=== PATIENT | male | born 1960 | race Hispanic/Latino ===

== ENCOUNTER 2017-09-17 06:12 | Inpatient (IN) | payer OTHER ==
[2017-09-17 06:29] VITALS: BMI 41.8
--- NOTE | 2017-09-17 07:25 | ED PDOC ---
Lower Extremity Pain/Injury Time Seen by Provider: 09/17/17 07:06 Chief Complaint (Nursing): Lower Extremity Problem/Injury Chief Complaint (Provider): Lower Extremity Problem/Injury History Per: Patient History/Exam Limitations: no limitations Onset/Duration Of Symptoms: Days (x 2 months) Current Symptoms Are (Timing): Still Present Additional Complaint(s): Zan is a 57 year old male who presents to the emergency department complaining of right knee pain for 2 months. Denies recent trauma, paresthesias, weakness. PMD: [place] Past Medical History Reviewed: Historical Data, Nursing Documentation, Vital Signs Vital Signs: Last Vital Signs Temp 98.4 F 09/17/17 06:30 Pulse 81 09/17/17 06:30 Resp 18 09/17/17 06:30 BP 158/93 H 09/17/17 06:30 Pulse Ox 96 09/17/17 06:30 - Medical History PMH: GERD Denies: Chronic Kidney Disease - Family History Family History: States: Unknown Family Hx - Social History Current smoker - smoking cessation education provided: No Alcohol: Social Drugs: Denies - Home Medications Home Medications: Ambulatory Orders Medication Instructions Recorded Pantoprazole Sodium [Protonix] 40 mg PO DAILY 09/17/17 oxyCODONE/Acetaminophen [Percocet 1 ea PO Q4H PRN #30 tab 09/17/17 5/325 mg Tab] - Allergies Allergies/Adverse Reactions: Allergies Allergy/AdvReac Type Severity Reaction Status Date / Time Penicillins Allergy RASH Verified 09/17/17 07:53 Review of Systems ROS Statement: Except As Marked, All Systems Reviewed And Found Negative Musculoskeletal: Positive for: Other (Right knee pain) Physical Exam - Reviewed Nursing Documentation Reviewed: Yes Vital Signs Reviewed: Yes - Physical Exam Appears: Positive for: Non-toxic Respiratory: Positive for: Normal Breath Sounds. Negative for: Respiratory Distress Extremity: Positive for: Tenderness (Anterior right knee) Neurologic/Psych: Positive for: Alert, Oriented (x 3) - Laboratory Results Result Diagrams: 09/17/17 07:25 09/17/17 07:25 - ECG O2 Sat by Pulse Oximetry: 96 (RA) Pulse Ox Interpretation: Normal Medical Decision Making Medical Decision Making: Time: 07:19 Plan: - Type and Screen - EKG - CMP - ED Urine [place] - CBC - Partial Thromboplastin - Prothrombin Time - Portable Chest X-Ray - Urinalysis Time: 07:23 Patient is to be admitted as an inpatient for intractable knee pain. Time: 10:45 Portable Chest X-Ray FINDINGS: LUNGS: No active pulmonary disease. PLEURA: No significant pleural effusion identified, no pneumothorax apparent. CARDIOVASCULAR: No radiographic findings to suggest acute or significant cardiovascular disease. OSSEOUS STRUCTURES: No significant abnormalities. VISUALIZED UPPER ABDOMEN: Normal. OTHER FINDINGS: None. IMPRESSION: No active disease. Scribe Attestation: Documented by Tristan Calderon, acting as a scribe for Monica Pastrana MD Provider Scribe Attestation: All medical record entries made by the Scribe were at my direction and personally dictated by me. I have reviewed the chart and agree that the record accurately reflects my personal performance of the history, physical exam, medical decision making, and the department course for this patient. I have also personally directed, reviewed, and agree with the discharge instructions and disposition. Disposition - Clinical Impression Clinical Impression: Intractable pain - Patient ED Disposition Is Patient to be Admitted: Yes - Disposition Disposition Time: 07:23 Condition: STABLE - Pt Status Changed To: Hospital Disposition Of: Inpatient - Admit Certification Admit to Inpatient:: After my assessment, the patient will require hospitalization for at least two midnights. This is because of the severity of symptoms shown, intensity of services needed, and/or the medical risk in this patient being treated as an outpatient. - POA Present On Arrival: None
[2017-09-17] MEDS ORDERED: Lidocaine 4% (Laryng-O-Jet) Kit MM ONE (07:50)
[2017-09-17] MEDS ORDERED: Succinylcholine 200 mg/10 ml Inj IV ONE (07:50)
[2017-09-17] MEDS ORDERED: Lidocaine 1% 5ml Abboject IV ONE (07:50)
[2017-09-17] MEDS ORDERED: Propofol 10 mg/ml Inj (20 ML) ONE (07:50)
[2017-09-17] MEDS ORDERED: Midazolam 2 MG/2 ML VIAL ONE (07:50)
[2017-09-17] MEDS ORDERED: Rocuronium 10 mg/ml (5 ml) ONE (07:51)
[2017-09-17 07:52] LABS: BASO # 0.1 K/uL (0.0-0.2); EOS # 0.2 K/uL (0.0-0.7); EOS % 2.8 % (0.0-4.0); HEMOGLOBIN 14.8 g/dL (12.0-18.0); LYMPH # 2.7 K/uL (1.0-4.3); LYMPH % 31.4 % (20.0-40.0); MEAN CELL VOLUME 83.8 fl (80.0-94.0); MEAN CORPUSCULAR HEMOGLOBIN 27.2 pg (27.0-31.0); MEAN CORPUSCULAR HGB CONC 32.5 g/dL (33.0-37.0); MEAN PLATELET VOLUME 9.2 fl (7.2-11.7); MONO # 0.8 K/uL (0.0-0.8); MONO % 9.2 % (0.0-10.0); NEUT # 4.8 K/uL (1.8-7.0); NEUT % 55.6 % (50.0-75.0); NRBC % 0.1 % (0.0-0.0); RBC 5.43 Mil/uL (4.40-5.90); RED CELL DISTRIBUTION WIDTH 15.5 % (11.5-14.5); WHITE BLOOD COUNT 8.7 K/uL (4.8-10.8)
[2017-09-17] MEDS ORDERED: Sevoflurane - Inhalation Anesthetic Liq (250 ml) ONE (07:53)
[2017-09-17] MEDS ORDERED: EPINEPHrine 1 mg/ml (1:1000) Inj ONE (07:56)
[2017-09-17] MEDS ORDERED: Bupivacaine 0.5% Inj(30mL) ONE (07:56)
[2017-09-17] MEDS ORDERED: methylPREDNISolone Depo 80 mg/ml Inj ONE (07:56)
[2017-09-17] MEDS ORDERED: Bacitracin Ointment 30 GM TUBE ONE (07:57)
--- NOTE | 2017-09-17 07:57 | CP.PCM.PN ---
Subjective - Date & Time of Evaluation Date of Evaluation: 09/17/17 Time of Evaluation: 07:54 - Subjective Subjective: 57 year old male patient with PMHx of GERD was seen and evaluated at bedside in ED complaining of right knee pain. Patient reports that he was seen by his Orthopedic doctor (Dr. Wolfe) prior to his visit to the ED today. Patient states that he had x-rays of the right knee but denies of having any other prior treatment. Patient reports that he has scheduled right knee surgery with Dr. Wolfe this morning. 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 Patient also denies of having these symptoms during rest. Patient denies of having any recent F/N/V/C/headache/diarrhea/urinary frequency/ urinary urgency or burning while urinating. Patient denies of having any other complains at this time. PMHx: GERD PSHx: Left knee surgery (meniscus repair), Hernia repair, Endoscopy (last month) Allergies: Penicillins SHx: Denies of smoking, EtOH or illicit drug usage, lives home with his FHx: DM, HTN (Mother) Medication: Protonix Objective - Vital Signs/Intake and Output Vital Signs (last 24 hours): Temp Pulse Resp BP Pulse Ox 98.4 F 81 18 158/93 H 96 09/17/17 06:30 09/17/17 06:30 09/17/17 06:30 09/17/17 06:30 09/17/17 07:52
[2017-09-17] MEDS ORDERED: Neostigmine Methylsulfate 2 MG/2 ML ML IV ONE (08:00)
[2017-09-17 08:01] LABS: URINE BILIRUBIN NEGATIVE (NEGATIVE); URINE BLOOD NEGATIVE (NEGATIVE); URINE CLARITY CLEAR (Clear); URINE COLOR YELLOW (YELLOW); URINE GLUCOSE (UA) NEG (Normal); URINE HYALINE CAST 0-2 /hpf (0-2); URINE LEUKOCYTE ESTERASE NEG Leu/uL (Negative); URINE NITRATE NEGATIVE (NEGATIVE); URINE PROTEIN NEGATIVE (NEGATIVE); URINE UROBILINOGEN 0.2-1.0 mg/dL (0.2-1.0)
[2017-09-17 08:03] LABS: ALB/GLOB RATIO 1.2 (1.0-2.1); ALT/SGPT 34 U/L (21-72); AST/SGOT 26 U/L (17-59); BLOOD UREA NITROGEN 19 mg/dl (9-20); CALCIUM 9.2 mg/dL (8.4-10.2); GFR AFRICAN-AMERICAN > 60; GFR NON-AFRICAN AMERICAN > 60
--- NOTE | 2017-09-17 08:07 | CP.SDSHP ---
Same Day Surgery H & P - History Proposed Procedure: Right knee arthroscopy Pre-Op Diagnosis: Intractable right knee pain - Allergies Allergies: Allergies Penicillins Allergy (Verified 09/17/17 07:53) RASH - Current Medications Current Medications: Home Medication List Medication Instructions Recorded Confirmed Type oxyCODONE/Acetaminophen [Percocet 1 ea PO Q4H PRN #30 tab 09/17/17 Rx 5/325 mg Tab] - Physical Exam Vital Signs: Vital Signs 09/17/17 09/17/17 09/17/17 06:30 07:52 07:55 Temperature 98.4 F 98.4 F Pulse Rate 81 81 Respiratory 18 18 Rate Blood Pressure 158/93 H 158/93 H O2 Sat by Pulse 96 96 Oximetry Mental Status: Alert & Oriented x3 Heart: WNL Lungs: WNL GI: WNL - {Optional Preform as Required} Ortho: Other (+ROM ankle/toes, sensation intaCT) Other Pertinent Findings: [place] [employer] DEVELOPER patient report reviewed, no CDS. Patient counseled on the risks of addiction, physical or psychological dependence, and overdose associated with opioid drugs and the danger of taking opioid drugs with alcohol and other central nervous system depressants, and cautioned patient on storage and disposal. - Impression Impression: 57M with intractable right knee pain for arthroscopy. labs reviewed Pt. Evaluated Today:Candidate for Anesthesia & Procedure: Yes - Date & Time Date: 09/17/17 Time: 08:07 Short Stay Discharge - Short Stay Discharge Admitting Diagnosis/Reason for Visit: INTRACTABLE KNEE PAIN Disposition: HOME/ ROUTINE Medications: oxyCODONE/Acetaminophen [Percocet 5/325 mg Tab] 1 ea PO Q4H PRN #30 tab PRN Reason: Pain, Moderate (4-7) Past Patient History - Past Medical History & Family History Past Medical History?: Yes - Past Social History Alcohol: Social Drugs: Denies - CARDIAC Hx Cardiac Disorders: No - PULMONARY Hx Respiratory Disorders: No - NEUROLOGICAL Hx Neurological Disorder: No - HEENT Hx HEENT Problems: No - RENAL Hx Chronic Kidney Disease: No - ENDOCRINE/METABOLIC Hx Endocrine Disorders: No - HEMATOLOGICAL/ONCOLOGICAL Hx Blood Disorders: No - INTEGUMENTARY Hx Dermatological Problems: No - MUSCULOSKELETAL/RHEUMATOLOGICAL Other/Comment: Knee pain - GASTROINTESTINAL Hx Gastroesophageal Reflux: Yes - PSYCHIATRIC Hx Psychophysiologic Disorder: No Hx Emotional Abuse: No Hx Physical Abuse: No Hx Substance Use: No
--- NOTE | 2017-09-17 08:09 | CP.PCM.HP ---
History of Present Illness - History of Present Illness History of Present Illness: 57 year old male patient with PMHx of GERD was seen and evaluated at bedside in ED complaining of right knee pain. Patient states that the pain has been present for about 2 months now. Patient denies of having any recent trauma or injury to the right knee. Patient reports that he was seen by his Orthopedic doctor (Dr. Wolfe) prior to his visit to the ED today. Patient states that he had x-rays of the right knee but denies of having any other prior treatment. Patient reports that he has scheduled right knee surgery with Dr. Wolfe this morning. 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 Patient also denies of having these symptoms during rest. Patient denies of having any recent F/N/V/C/headache/diarrhea/urinary frequency/urinary urgency or burning while urinating. Patient denies of having any other complains at this time. PMHx: GERD PSHx: Left knee surgery (meniscus repair), Hernia repair, Endoscopy (last month) Allergies: Penicillins SHx: Denies of smoking, EtOH or illicit drug usage, lives home with his FHx: DM, HTN (Mother) Medication: Protonix Present on Admission - Present on Admission Any Indicators Present on Admission: No Review of Systems - Constitutional Constitutional: As Per HPI - EENT Eyes: As Per HPI - Cardiovascular Cardiovascular: As Per HPI - Respiratory Respiratory: As Per HPI - Gastrointestinal Gastrointestinal: As Per HPI - Musculoskeletal Musculoskeletal: Limited Range of Motion, Stiffness - Integumentary Integumentary: As Per HPI - Neurological Neurological: As Per HPI - Psychiatric Psychiatric: As Per HPI - Endocrine Endocrine: As Per HPI Past Patient History - Past Medical History & Family History Past Medical History?: Yes - Past Social History Alcohol: Social Drugs: Denies - CARDIAC Hx Cardiac Disorders: No - PULMONARY Hx Respiratory Disorders: No - NEUROLOGICAL Hx Neurological Disorder: No - HEENT Hx HEENT Problems: No - RENAL Hx Chronic Kidney Disease: No - ENDOCRINE/METABOLIC Hx Endocrine Disorders: No - HEMATOLOGICAL/ONCOLOGICAL Hx Blood Disorders: No - INTEGUMENTARY Hx Dermatological Problems: No - MUSCULOSKELETAL/RHEUMATOLOGICAL Other/Comment: Knee pain - GASTROINTESTINAL Hx Gastroesophageal Reflux: Yes - PSYCHIATRIC Hx Psychophysiologic Disorder: No Hx Emotional Abuse: No Hx Physical Abuse: No Hx Substance Use: No Meds Home Medications: Home Medication List Medication Instructions Recorded Confirmed Type oxyCODONE/Acetaminophen [Percocet 1 ea PO Q4H PRN #30 tab 09/17/17 Rx 5/325 mg Tab] Allergies/Adverse Reactions: Allergies Allergy/AdvReac Type Severity Reaction Status Date / Time Penicillins Allergy RASH Verified 09/17/17 07:53 Physical Exam - Constitutional Appears: Well, Non-toxic, No Acute Distress - Head Exam Head Exam: ATRAUMATIC - Eye Exam Eye Exam: Normal appearance - ENT Exam ENT Exam: Normal Exam - Neck Exam Neck exam: Positive for: Full Rom, Normal Inspection - Respiratory Exam Respiratory Exam: Clear to Auscultation Bilateral, NORMAL BREATHING PATTERN. absent: Rales, Rhonchi, Wheezes, Respiratory Distress - Cardiovascular Exam Cardiovascular Exam: REGULAR RHYTHM, +S1, +S2. absent: Bradycardia, Tachycardia , Systolic Murmur - GI/Abdominal Exam GI & Abdominal Exam: Normal Bowel Sounds, Soft. absent: Mass, Organomegaly, Rigid - Rectal Exam Rectal Exam: Deferred - Extremities Exam Extremities exam: Positive for: normal capillary refill, normal inspection, tenderness, pedal pulses present. Negative for: calf tenderness - Neurological Exam Neurological exam: Alert, Oriented x3 - Psychiatric Exam Psychiatric exam: Normal Affect, Normal Mood - Skin Skin Exam: Intact, Normal Color, Warm Results - Vital Signs Recent Vital Signs: Last Vital Signs Temp 98.4 F 09/17/17 07:55 Pulse 81 09/17/17 07:55 Resp 18 09/17/17 07:55 BP 158/93 H 09/17/17 07:55 Pulse Ox 96 09/17/17 07:52 - Labs Result Diagrams: 09/17/17 07:25 09/17/17 07:25 Labs: Laboratory Results - last 24 hr 09/17/17 09/17/17 09/17/17 07:25 07:25 07:25 WBC 8.7 RBC 5.43 Hgb 14.8 Hct 45.5 MCV 83.8 MCH 27.2 MCHC 32.5 L RDW 15.5 H Plt Count 157 MPV 9.2 Neut % (Auto) 55.6 Lymph % (Auto) 31.4 [place] % (Auto) 9.2 Eos % (Auto) 2.8 Baso % (Auto) 1.0 Neut # 4.8 Lymph # 2.7 [place] # 0.8 Eos # 0.2 Baso # 0.1 Sodium 143 Potassium 4.3 Chloride 109 H Carbon Dioxide 22 Anion Gap 16 BUN 19 Creatinine 0.9 Est GFR ( Amer) > 60 Est GFR (Non-Af Amer) > 60 Random Glucose 110 Calcium 9.2 Total Bilirubin 0.7 AST 26 ALT 34 Alkaline Phosphatase 64 Total Protein 7.4 Albumin 4.0 Globulin 3.4 Albumin/Globulin Ratio 1.2 Urine Color Urine Clarity Urine pH Ur Specific [place] Urine Protein Urine Glucose (UA) Urine Ketones Urine Blood Urine Nitrate Urine Bilirubin Urine Urobilinogen Ur Leukocyte Esterase Urine RBC (Auto) Urine Microscopic WBC Hyaline Casts BBK History Checked No verified bt 09/17/17 07:25 WBC RBC Hgb Hct MCV MCH MCHC RDW Plt Count MPV Neut % (Auto) Lymph % (Auto) [place] % (Auto) Eos % (Auto) Baso % (Auto) Neut # Lymph # [place] # Eos # Baso # Sodium Potassium Chloride Carbon Dioxide Anion Gap BUN Creatinine Est GFR ( Amer) Est GFR (Non-Af Amer) Random Glucose Calcium Total Bilirubin AST ALT Alkaline Phosphatase Total Protein Albumin Globulin Albumin/Globulin Ratio Urine Color Yellow Urine Clarity Clear Urine pH 5.0 Ur Specific [place] 1.023 Urine Protein Negative Urine Glucose (UA) Neg Urine Ketones Negative Urine Blood Negative Urine Nitrate Negative Urine Bilirubin Negative Urine Urobilinogen 0.2-1.0 Ur Leukocyte Esterase Neg Urine RBC (Auto) 3 Urine Microscopic WBC < 1 Hyaline Casts 0-2 BBK History Checked Assessment & Plan - Assessment and Plan (Free Text) Assessment: 57 year old male patient with PMHx of GERD was evaluated for right knee pain. Plan: 1). Right knee pain - Orthopedic Consult (Dr. Wolfe) - Patient to go to OR today for right knee arthroscopy - Pre-op work-up - Labs, EKG, CXR - Reviewed - NPO status confirmed (since 8 PM yesterday) - Denies of having any adverse reaction to anesthesia from previous surgery - Cardiology Consult (Dr. Armendariz) - Recommendations appreciated - Patient is low risk for surgery - may progress to right knee surgery 2). GERD - Continue Home meds - Chronic 3). DVT PPx - Ambulating - Hold meds for now since going to surgery - Date & Time Date: 09/17/17 Time: 08:09
[2017-09-17 08:15] LABS: INR 1.1 (0.9-1.2); PARTIAL THROMBOPLASTIN TIME 33.6 Seconds (25.6-37.1); PROTHROMBIN TIME 12.4 Seconds (9.8-13.1)
--- NOTE | 2017-09-17 08:33 | CP.PCM.CON ---
History of Present Illness - History of Present Illness History of Present Illness: THE PATIENT IS A 57 YEAR OLD MALE ADMITTED VIA THE ER FOR A RIGHT MENISCUS PROBLEM FOR SURGERY BY DR CANO. CARDIOLOGY WAS CALLED TO SEE HIM BECAUSE OF AN ABNORMAL EKG. HE DENIES ANY KNOWN MEDICAL PROBLEMS EXCEPT FOR GERDS FOR WHICH HE TAKES PROTONIX. HE DENIES CAD, TYPICAL CHEST PAIN, HYPERTENSION OR DM. HE DENIES ANY SPECIFIC TRAUMA TO THE RIGHT KNEE. HE HAD LEFT KNEE SURGERY IN THE PAST Past Patient History - Past Medical History & Family History Past Medical History?: Yes - Past Social History Alcohol: Social Drugs: Denies - CARDIAC Hx Cardiac Disorders: No - PULMONARY Hx Respiratory Disorders: No - NEUROLOGICAL Hx Neurological Disorder: No - HEENT Hx HEENT Problems: No - RENAL Hx Chronic Kidney Disease: No - ENDOCRINE/METABOLIC Hx Endocrine Disorders: No - HEMATOLOGICAL/ONCOLOGICAL Hx Blood Disorders: No - INTEGUMENTARY Hx Dermatological Problems: No - MUSCULOSKELETAL/RHEUMATOLOGICAL Other/Comment: Knee pain - GASTROINTESTINAL Hx Gastroesophageal Reflux: Yes - PSYCHIATRIC Hx Psychophysiologic Disorder: No Hx Emotional Abuse: No Hx Physical Abuse: No Hx Substance Use: No Meds Home Medications: Home Medication List Medication Instructions Recorded Confirmed Type oxyCODONE/Acetaminophen [Percocet 1 ea PO Q4H PRN #30 tab 09/17/17 Rx 5/325 mg Tab] Allergies/Adverse Reactions: Allergies Allergy/AdvReac Type Severity Reaction Status Date / Time Penicillins Allergy RASH Verified 09/17/17 07:53 Physical Exam - Respiratory Exam Respiratory Exam: Clear to Auscultation Bilateral - Cardiovascular Exam Cardiovascular Exam: REGULAR RHYTHM, +S1, +S2 - Extremities Exam Additional comments: MILD BILATERAL TENDERNESS - Additional Findings Additional findings: EKG NSR-THE EKG WAS READ A POSSIBLE INFERIOR WALL IL BY THE MACHINE BUT A CLOSE INSPECTION OF THE EKG SHOWS SMALL R BLIPS IN THE INFERIOR LEADS Results - Vital Signs Recent Vital Signs: Last Vital Signs Temp 98.4 F 09/17/17 07:55 Pulse 81 09/17/17 07:55 Resp 18 09/17/17 07:55 BP 158/93 H 09/17/17 07:55 Pulse Ox 96 09/17/17 07:52 - Labs Result Diagrams: 09/17/17 07:25 09/17/17 07:25 Labs: Laboratory Results - last 24 hr 09/17/17 09/17/17 09/17/17 07:25 07:25 07:25 WBC 8.7 RBC 5.43 Hgb 14.8 Hct 45.5 MCV 83.8 MCH 27.2 MCHC 32.5 L RDW 15.5 H Plt Count 157 MPV 9.2 Neut % (Auto) 55.6 Lymph % (Auto) 31.4 [place] % (Auto) 9.2 Eos % (Auto) 2.8 Baso % (Auto) 1.0 Neut # 4.8 Lymph # 2.7 [place] # 0.8 Eos # 0.2 Baso # 0.1 PT 12.4 INR 1.1 APTT 33.6 Sodium 143 Potassium 4.3 Chloride 109 H Carbon Dioxide 22 Anion Gap 16 BUN 19 Creatinine 0.9 Est GFR ( Amer) > 60 Est GFR (Non-Af Amer) > 60 Random Glucose 110 Calcium 9.2 Total Bilirubin 0.7 AST 26 ALT 34 Alkaline Phosphatase 64 Total Protein 7.4 Albumin 4.0 Globulin 3.4 Albumin/Globulin Ratio 1.2 Urine Color Urine Clarity Urine pH Ur Specific [place] Urine Protein Urine Glucose (UA) Urine Ketones Urine Blood Urine Nitrate Urine Bilirubin Urine Urobilinogen Ur Leukocyte Esterase Urine RBC (Auto) Urine Microscopic WBC Hyaline Casts BBK History Checked 09/17/17 09/17/17 07:25 07:25 WBC RBC Hgb Hct MCV MCH MCHC RDW Plt Count MPV Neut % (Auto) Lymph % (Auto) [place] % (Auto) Eos % (Auto) Baso % (Auto) Neut # Lymph # [place] # Eos # Baso # PT INR APTT Sodium Potassium Chloride Carbon Dioxide Anion Gap BUN Creatinine Est GFR ( Amer) Est GFR (Non-Af Amer) Random Glucose Calcium Total Bilirubin AST ALT Alkaline Phosphatase Total Protein Albumin Globulin Albumin/Globulin Ratio Urine Color Yellow Urine Clarity Clear Urine pH 5.0 Ur Specific [place] 1.023 Urine Protein Negative Urine Glucose (UA) Neg Urine Ketones Negative Urine Blood Negative Urine Nitrate Negative Urine Bilirubin Negative Urine Urobilinogen 0.2-1.0 Ur Leukocyte Esterase Neg Urine RBC (Auto) 3 Urine Microscopic WBC < 1 Hyaline Casts 0-2 BBK History Checked No verified bt Assessment & Plan - Assessment and Plan (Free Text) Assessment: RIGHT MENISCUS DISEASE Plan: THE PATIENT IS CLEARED FOR SURGERY
--- NOTE | 2017-09-17 10:18 | CARD ---
APPROVED REPORT EKG Measurement Heart [id number] <Conclusion> Normal sinus rhythm Possible Left atrial enlargement Inferior infarct, age undetermined Abnormal ECG
--- NOTE | 2017-09-17 10:47 | RAD ---
HISTORY: Medical clearance. COMPARISON: No prior. FINDINGS: LUNGS: No active pulmonary disease. PLEURA: No significant pleural effusion identified, no pneumothorax apparent. CARDIOVASCULAR: No radiographic findings to suggest acute or significant cardiovascular disease. OSSEOUS STRUCTURES: No significant abnormalities. VISUALIZED UPPER ABDOMEN: Normal. OTHER FINDINGS: None. IMPRESSION: No active disease.
[2017-09-17] MEDS ORDERED: Lidocaine 1% Inj (20ml) ONE (10:50)
[2017-09-17] MEDS ORDERED: Lactated Ringer's 1,000 ML IV ONE ×2 (11:30→14:25)
[2017-09-17] MEDS ORDERED: Lidocaine 1% Inj (20ml) IJ ONE (12:30)
[2017-09-17] MEDS ORDERED: Morphine 1 mg/ml preservative-free Inj(Duramorph) ONE (13:03)
[2017-09-17] MEDS ORDERED: methylPREDNISolone Depo 80 mg/ml Inj IM ONE (13:04)
[2017-09-17] MEDS ORDERED: Bupivacaine 0.5% 50 ML IJ ONE (13:04)
[2017-09-17] MEDS ORDERED: Lactated Ringer's 1,000 ML IV SCH (13:30)
[2017-09-17] MEDS: HYDROmorphone 0.5 mg/0.5 ml ISec IVP PRN ×3 (14:00→14:20)
[2017-09-17] MEDS ORDERED: Oxycodone/Acetaminophen 5/325 mg Tab PO PRN (14:01)
--- NOTE | 2017-09-17 14:11 | PCM.SURG1 ---
Surgeon's Initial Post Op Note - Surgeon's Notes Surgeon: Aiden Survey Superintendent: JEOVANNY Wood Type of Anesthesia: General Endo Anesthesia Administered By: Dr Prajapati Pre-Operative Diagnosis: Locked R knee Operative Findings: chondral fx/osteoarthritis/ Medial femoral condyle. tear medial meniscus/tear lateral meniscus. tricompartmentyal synovitis Post-Operative Diagnosis: as above Operation Performed: artheroscopic abrasion arthroplasty R knee. arthroscopic tericomaprtmental synovectomy R knee. tear medial meniscus/tear lateral meniscus R knee. intraarticular injection Specimen/Specimens Removed: cartilage synovium bone Estimated Blood Loss: EBL {In ML}: 20 Blood Products Given: N/A Drains Used: No Drains Post-Op Condition: Good Date of Surgery/Procedure: 09/17/17 Time of Surgery/Procedure: 12:35 (time in room 130)
[2017-09-17 16:40] VITALS: TEMP 97.3
[2017-09-17 17:40] VITALS: BP 119/70; PULSE 78; RESP 17
--- NOTE | 2017-09-18 12:58 | OP ---
PROCEDURE DATE: 09/17/2017 PREOPERATIVE DIAGNOSIS: Locked right knee. 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 PROCEDURES: 1. Abrasion arthroplasty, medial femoral condyle/microfracture. 2. Surgical arthroscopy, partial tricompartmental synovectomy. 3. Surgical arthroscopy, partial, medial, and lateral meniscectomy. 4. Intraarticular injection. 5. Application of Jayro Gutierrez compression dressing and knee immobilizers. SURGEON: Lonny Wolfe MD [employer] DE[employer]MENT: Maria Isabel Ann, certified registered nursing psych assistant. TYPE OF ANESTHESIA: General endotracheal anesthesia. ANESTHESIA ADMINISTERED BY: Karlos Prajapati MD COMPLICATIONS: No complications. DRAINS: No drains. OPERATIVE INDICATION: Zan Nieves is a gentleman who presents to the emergency room at [facility] with severe pain and locking in the right knee. The patient presents with pain such that he can no longer withstand the pain and presented to the emergency room. The patient was evaluated and admitted as an emergency. Significant past orthopedic history is positive for arthritis in the left knee and the patient had undergone left knee arthroscopy approximately 5 years ago. The patient is admitted as an emergency because of severe discomfort. X-rays were obtained. The patient was taken directly to surgery. Physical examination reveals evidence of marked tenderness in the area of the medial and lateral joint and the medial compartment. The possibility of MRI examination will only defer the process. This was discussed with the patient. The possibility of surgical arthroscopy, possibility indeed the likelihood of later replacement arthroplasty was discussed down the line. Pros, cons, risks and benefits were discussed at length. The possibility of mechanical failure, infection, thromboembolic disease, secondary or tertiary surgery was discussed. The concept that further diagnostic testing will be deferred in the interest of getting the patient out of pain and a locking knee. OPERATIVE PROCEDURE: After having obtained informed consent in the above fashion; after having identified side, site, and procedure, and a critical pause/time-out, the right knee is the affected knee, the patient identified as Zan Nieves. After the satisfactory induction of general tracheal anesthesia by Dr. Prajapati, the right lower extremity was prepped and free draped in the usual fashion for lower extremity surgery. The tourniquet had been applied, but was not inflated. After exsanguinating the limb using a 6-inch Esmarch bandage, the tourniquet, which have been applied was inflated to 350 mmHg. The joint was insufflated with 10 mL of 1% lidocaine without epinephrine. Using #11 blade, followed by spreading, followed by introduction of the blunt trocar, the arthroscope was introduced, was found to be a marked tricompartmental synovitis. It should be noted that the knee taylor was employed and with the surgeon exerting a general valgus stress so as not to injure the medial collateral ligament. Triangulation was accomplished using #18-gauge spinal needle followed by #11 blade, followed by spreading, followed by introduction of the blunt trocar. The third anterocentral portal was accomplished again using #18-gauge spinal needle, followed by #11 blade, followed by spreading. With the arthroscope anterolaterally, careful partial tricompartmental synovectomy was accomplished both to improve visualization and to ablate irritative tissue. Hemostasis was controlled with the arthroscopic wand after a careful partial tricompartmental synovectomy. Please refer to the video photographs. A careful tricompartmental synovitis was addressed. Partial synovectomy was accomplished. Bleeding points were controlled with the wand. This having been accomplished, with the arthroscope anterolaterally with the knee, with the surgeon exerting a general valgus stress, there was found to be a complex tear of the medial meniscus. The deep posterior horn fragment extends into the intercondylar notch and as a result, a third transpatellar stick is accomplished using #18-gauge spinal needle, followed by #11 blade, followed by spreading. With the arthroscope anterolaterally, a careful partial tricompartmental synovectomy was accomplished both to improve visualization and to ablate irritative tissue. With the arthroscope anterolaterally with the surgeon exerting a general valgus stress using a combination of the arthroscopic shaver and the upbiting basket forceps, a partial medial meniscectomy is accomplished. This having been accomplished, the arthroscope was transferred anteromedially again with a valgus stress with the arthroscopic shaver in the anterocentral portal, the deep posterior horn fragment was carefully debrided. The upbiting basket forceps was placed into the anterocentral portal as well and this having been accomplished, the medial meniscal fragment was addressed. Partial medial meniscectomy was accomplished. The inner free edge was smoothed using the Tika surface wand. With the arthroscope anterolaterally with the knee in [id number] position, the anterior cruciate ligament was found to be intact. Again, there was evidence of synovitis and careful partial tricompartmental synovectomy was again completed. It should be noted in the medial femoral condyle, there was evidence of chondral damage with full-thickness injury to the medial femoral condyle speaking for arthritis of the medial compartment. There was found to be a tear of the inner free edge of the lateral meniscus with the knee in [id number] position, the tear was probed using a combination of the straight biting basket forceps, the side biting basket forceps, and the arthroscopic shaver. A partial lateral meniscectomy is accomplished. With the arthroscope anterolaterally, partial lateral meniscectomy was accomplished. The inner free edge was smoothed using the Tika surface wand. With the arthroscope anterolaterally, careful partial tricompartmental synovectomy was completed. Bleeding points were controlled with the arthroscopic wand. With the arthroscope anterolaterally, careful partial tricompartmental synovectomy is completed. Partial, medial, and lateral meniscectomy were completed. An abrasion arthroplasty is accomplished of the medial femoral condyle with the arthroscope anterolaterally. Using the arthroscopic shaver, an initial abrasion is accomplished. At this point in time, using the arthroscopic pick in a honeycomb type fashion, down through the articular plate, a microfracture was accomplished as well. Loose fragments were removed using the 3.4-mm Dyonics suction punch and the arthroscopic shaver. Synovectomy was completed. Portals were closed with interrupted Vicryl and nylon. Intraarticular ejection was offered. Jayro Gutierrez compression dressing was applied. The patient is stable in recovery. The patient will be covered with antibiotics because he did have, around the area of the ankle, a bit of redness. There was no klever cellulitis, but prophylactically, he will be covered with Cleocin. We will see the patient back on Sunday to evaluate the wound. Lonny Wolfe MD [facility] # [id number]
[2017-09-18 15:54] VITALS: O2SAT 96
== END 2017-09-17 19:35 | disposition home or self-care (01) | DRG 489 ==
LOC: H.ER 06:12 → H.ERHOLD 07:23 → H.MEDSURG1 09:22
PROVIDERS: ADMIT Hospitalist; ATTEND Hospitalist
PROC: 0SQC4ZZ Repair Right Knee Joint, Percutaneous Endoscopic Approach (ICD-10-PCS; 2017-09-17)
PROC: 0SBC4ZZ Excision of Right Knee Joint, Percutaneous Endoscopic Approach (ICD-10-PCS; principal; 2017-09-17 17:45)
DX: S83.231A Complex tear of medial meniscus, current injury, right knee, initial encounter (principal); K21.9 Gastro-esophageal reflux disease without esophagitis; M65.9 Synovitis and tenosynovitis, unspecified; R94.31 Abnormal electrocardiogram [ECG] [EKG]; Z88.0 Allergy status to penicillin; X58.XXXA Exposure to other specified factors, initial encounter; M17.12 Unilateral primary osteoarthritis, left knee; S83.239A Complex tear of medial meniscus, current injury, unspecified knee, initial encounter; S83.281A Other tear of lateral meniscus, current injury, right knee, initial encounter